=== PATIENT | female | born 1935 ===

== ENCOUNTER 2021-07-28 18:25 | Inpatient (IN) ==
[2021-07-28] MEDS ORDERED: 0.9 % SODIUM CHLORIDE 500 ML IV ONE ×2 (18:35→23:13)
[2021-07-28] MEDS ORDERED: fentaNYL 100 MCG/2 ML VIAL IV ONE (18:36)
[2021-07-28 19:20] LABS: Basophils # (Auto) 0.05 K/mcL (0.00-0.30); Basophils % (Auto) 0.5 % (0.0-2.0); Eosinophils # (Auto) 0.16 K/mcL (0.00-0.70); Eosinophils % (Auto) 1.6 % (0.0-7.0); Hematocrit 37.4 % (34.1-44.9); Hemoglobin 12.7 g/dL (11.2-15.7); Lymphocytes # (Auto) 1.81 K/mcL (1.50-4.80); Mean Platelet Volume 10.9 fL (7.4-10.4); Monocytes # (Auto) 1.21 K/mcL (0.10-0.90); Neutrophils % (Auto) 67.9 % (38.0-78.0); Platelet Count 252 K/mcL (140-440); RBC 4.35 M/mcL (3.59-5.38); Red Cell Distribution Width 12.8 % (11.5-14.5); WBC 10.1 K/mcL (4.5-11.0)
[2021-07-28 19:40] LABS: Blood Urea Nitrogen 16 mg/dL (8-23); Calcium 8.2 mg/dL (8.6-10.4); Carbon Dioxide 27 mmol/L (22-30); Chloride 91 mmol/L (96-108); Glomerular Filtration Rate 66; Glucose 141 mg/dL (70-105)
[2021-07-28] MEDS ORDERED: HYDROmorphone 0.5 MG/0.5 ML SYRINGE ONE (20:32)
[2021-07-28] MEDS ORDERED: ONDANSETRON 4 MG/2 ML VIAL ONE (20:32)
[2021-07-28] MEDS ORDERED: HYDROmorphone 0.5 MG/0.5 ML SYRINGE IV ONE (20:44)
[2021-07-28] MEDS ORDERED: HYDROmorphone 1 MG/ML SYRINGE IV ONE (20:44)
[2021-07-28] MEDS ORDERED: ONDANSETRON 4 MG/2 ML VIAL IV ONE (20:44)
--- NOTE | 2021-07-28 20:51 | Internal Med History&Physical ---
HPI History of Present Illness Patient information: Note initiated : 07/28/21 at 8:47 pm Service Date, if different from initiated Date: [] Patient: Sunshine Palacios a 85 y/o F admitted on for fall right hip pain. Chief Complaint: [] History of present illness: Ms. Palacios is a 85 year old F Who was walking in her bedroom she tripped and fell. Immediate pain to the right hip. In the ED she has had nausea and vomiting but otherwise no complaints. No chest pain shortness of breath coughing. No headaches. Awaiting callback from orthopedic surgeon. In the ED patient hypertensive sodium mildly low but is on hydrochlorothiazide. Does have history of COPD and is on 3 L of oxygen at baseline. Does have history of pulmonary fibrosis Review of Systems: Pertinent positives as above. Denies headache/fever/chills/chest or abdominal pain/cough/dyspnea/diarrhea. Remaining 10 point review review of system reviewed negative PFSH PFSH All Active Problems (Updated 07/28/21 @ 20:08 by Ki Oden DO) Closed hip fracture (Acute) MEDS/ALLERGIES Home Medications and Allergies Home Medications Medication Instructions Recorded Confirmed Type L.acidop,casei,lactis,rham-B.lact,ajit 1 cap PO BID 07/28/21 07/28/21 History 625 mg (10 billion cell) capsule (Advanced Probiotic) albuterol sulfate 2.5 mg INHALATION Q2H PRN 07/28/21 07/28/21 History hydrochlorothiazide 25 mg tablet 25 mg PO QAM 07/28/21 07/28/21 History loperamide 2 mg capsule (Imodium 2 mg PO Q4H PRN 07/28/21 07/28/21 History A-D) losartan 100 mg tablet 100 mg PO QDAY 07/28/21 07/28/21 History lovastatin 40 mg tablet 40 mg PO QPM 07/28/21 07/28/21 History metoprolol succinate 100 mg 100 mg PO QDAY 07/28/21 07/28/21 History tablet,extended release 24 hr nitroglycerin 0.4 mg sublingual 0.4 mg SUBLINGUAL Q5M PRN 07/28/21 07/28/21 History tablet omeprazole 20 mg capsule,delayed 20 mg PO QDAY 07/28/21 07/28/21 History release ondansetron 4 mg disintegrating 4 mg TRANSLINGUAL Q6H PRN 07/28/21 07/28/21 History tablet oxybutynin chloride 5 mg 5 mg PO QDAY 07/28/21 07/28/21 History tablet,extended release 24 hr potassium chloride 10 mEq 10 meq PO TID 07/28/21 07/28/21 History capsule,extended release risperidone 0.25 mg tablet 0.25 mg PO QHS 07/28/21 07/28/21 History vit A 300 mcg-C 200 mg-E 27 1 tab PO QDAY 07/28/21 07/28/21 History mg-lutein 2 mg and minerals tablet (Ocuvite with Lutein) Allergies Allergy/AdvReac Type Severity Reaction Status Date / Time ibuprofen Allergy Unknown Unknown Verified 07/28/21 18:29 EXAM Constitutional Vitals: Pulse Resp BP Pulse Ox 57 L 16 200/96 96 07/28/21 20:44 07/28/21 18:30 07/28/21 20:44 07/28/21 20:44 Exam: General: Alert, Awake, No acute Distress, obese Eyes/N/T: EOMI, PERRL, Head/Neck: neck supple, normocephalic atraumatic CV: RRR, No murmurs, normal s1/s2 Pulm: Clear b/l, no wheezing/rhonchi/rales Abd: soft, nontender, +BS x4 Ext: no clubbing/cyanosis, mild b/l LE edema Neuro: Alert, no focal deficits, moves all extremities, CN 2-12 grossly intact, symmetrical strength b/l upper/lower, sensations intact b/l upper/lower Skin: warm/dry DATA Data Completed and Pending Labs: Labs from last 24 hours 07/28/21 07/28/21 18:53 18:53 WBC 10.1 RBC 4.35 Hgb 12.7 Hct 37.4 MCV 86.0 MCH 29.2 MCHC 34.0 RDW 12.8 Plt Count 252 MPV 10.9 H Neut % (Auto) 67.9 Lymph % (Auto) 18.0 [place] % (Auto) 12.0 Eos % (Auto) 1.6 Baso % (Auto) 0.5 Lymph # (Auto) 1.81 [place] # (Auto) 1.21 H Eos # (Auto) 0.16 Baso # (Auto) 0.05 Absolute Neutrophils 6.82 Sodium 127 L Potassium 3.4 Chloride 91 L Carbon Dioxide 27 Anion Gap 9.0 BUN 16 Creatinine 0.8 GFR Calculation 66 Glucose 141 H Calcium 8.2 L A/P Narrative A/P Narrative: A: *Right hip fracture: *Hypertension: Elevated on admit *Hyponatremia: *COPD(3 L O2)/pulmonary fibrosis chronic hypoxic resp failure: *CKD III: *h/o CVA: On statin but do not see aspirin *HTN/HLD: *Obesity: BMI 33 *GERD: P: -Dr jones for ortho -NS IVF -home O2 and IH's -d/c home HCTZ for hyponatremia -Start ASA, continue statin -Continue home ARB/BB - -PT/OT -ppx: SCDs and postop per Ortho /home PPI DNR Time Spent With Patient Time: Total time spent is greater than 50% in coordination of care (as documented) at patient's floor/unit and/or counseling patient:
--- NOTE | 2021-07-28 21:44 | Emergency Department Note ---
Lower Extremity Injury HPI General Chief Complaint: Extremity Injury, Lower Stated Complaint: fall right hip pain Time Seen by Provider: 07/28/21 18:35 Source: EMS Mode of arrival: EMS Limitations: altered mental status History of Present Illness HPI Narrative: Narrative: 85-year-old female history of heart failure, angina, hypertension presents to ED with acute right hip pain. She got up to use the bathroom and stumbled over a blanket or towel that was on the floor fell injuring her right hip. No head injury no LOC. Has focal pain to her right hip and unable to ambulate due to it. Severe pain with any range of motion. No head pain neck pain thoracic pain abdominal pain or pain or injury in her other extremities no distal numbness tingling no blood thinners. Related Data Home Medications Medication Instructions Recorded Confirmed L.acidop,casei,lactis,rham-B.lact,ajit 1 cap PO BID 07/28/21 07/28/21 625 mg (10 billion cell) capsule (Advanced Probiotic) albuterol sulfate 2.5 mg INHALATION Q2H PRN 07/28/21 07/28/21 hydrochlorothiazide 25 mg tablet 25 mg PO QAM 07/28/21 07/28/21 loperamide 2 mg capsule (Imodium 2 mg PO Q4H PRN 07/28/21 07/28/21 A-D) losartan 100 mg tablet 100 mg PO QDAY 07/28/21 07/28/21 lovastatin 40 mg tablet 40 mg PO QPM 07/28/21 07/28/21 metoprolol succinate 100 mg 100 mg PO QDAY 07/28/21 07/28/21 tablet,extended release 24 hr nitroglycerin 0.4 mg sublingual 0.4 mg SUBLINGUAL Q5M PRN 07/28/21 07/28/21 tablet omeprazole 20 mg capsule,delayed 20 mg PO QDAY 07/28/21 07/28/21 release ondansetron 4 mg disintegrating 4 mg TRANSLINGUAL Q6H PRN 07/28/21 07/28/21 tablet oxybutynin chloride 5 mg 5 mg PO QDAY 07/28/21 07/28/21 tablet,extended release 24 hr potassium chloride 10 mEq 10 meq PO TID 07/28/21 07/28/21 capsule,extended release risperidone 0.25 mg tablet 0.25 mg PO QHS 07/28/21 07/28/21 vit A 300 mcg-C 200 mg-E 27 1 tab PO QDAY 07/28/21 07/28/21 mg-lutein 2 mg and minerals tablet (Ocuvite with Lutein) Allergies Allergy/AdvReac Type Severity Reaction Status Date / Time ibuprofen Allergy Unknown Unknown Verified 07/28/21 18:29 Review of Systems ROS ROS Narrative: Narrative: At least 10 systems reviewed and otherwise acutely negative except as in the HPI PFSH Narrative Patient History Narrative: Narrative: Medical/Surgical/Family History All Active Problems Closed hip fracture (Acute) Social History Smoking Status: Former smoker Exam Narrative Narrative: Narrative: Constitutional: normally developed, no acute distress . Head: Normocephalic, atraumatic, Eyes: No Icterus, PERRLA ENT: Moist mucus membranes, Neck: Supple, no midline tenderness Cardiac: Normal heart sounds, palpable dorsalis pedis pulses, Pulmonary: Normal respiratory effort. Breath sounds clear, no wheeze, rhonchi, rales, Gastrointestinal: Abdomen soft, non-distended, non-tender, pelvis stable Musculoskeletal: No gross deformities, well perfused. Upper extremities unremarkable full range of motion nontender left lower extremity unremarkable full range of motion nontender, right lower extremity severe pain with any logroll of her right hip it is shortened externally rotated but distally is neurovascularly intact Skin: warm, dry Neuro: Alert and orientedx2-3. General Limitations: altered mental status Course Vital Signs Vital signs: Vital Signs Pulse Rate 62 07/28/21 18:30 Respiratory Rate 16 07/28/21 18:30 Blood Pressure 225/86 07/28/21 18:30 Pulse Oximetry (%) 96 07/28/21 18:30 Temperature 36.3 C 07/28/21 21:23 Pulse Rate 64 07/28/21 21:16 Respiratory Rate 16 07/28/21 18:30 Blood Pressure 183/96 07/28/21 21:16 Pulse Oximetry (%) 99 07/28/21 21:16 [facility] Narrative Medical decision making narrative: Narrative: Patient with acute right hip pain suspicious for fracture after mechanical fall. She has no other complaints or other signs of trauma. X-ray per my interpretation does show acute right hip fracture appears intertrochanteric. Chest x-ray per my interpretation may show some cardiomegaly and perhaps vascular congestion but no traumatic injury that is apparent. Basic labs obtained has some mild hyponatremia. Is made n.p.o. is given analgesia and pain is controlled Consulted with Dr. Saleh, plan for operative fix around tomorrow at [address] yu who will admit the patient medically Lab Data Result diagrams: 07/28/21 18:53 07/28/21 18:53 Labs: Lab Results 07/28/21 07/28/21 Range/Units 18:53 18:53 WBC 10.1 (4.5-11.0) K/mcL RBC 4.35 (3.59-5.38) M/mcL Hgb 12.7 (11.2-15.7) g/dL Hct 37.4 (34.1-44.9) % MCV 86.0 (80.0-100.0) fL MCH 29.2 (26.0-34.0) pg MCHC 34.0 (31.0-36.0) g/dL RDW 12.8 (11.5-14.5) % Plt Count 252 (140-440) K/mcL MPV 10.9 H (7.4-10.4) fL Neut % (Auto) 67.9 (38.0-78.0) % Lymph % (Auto) 18.0 (15.5-49.0) % [place] % (Auto) 12.0 (1.0-12.0) % Eos % (Auto) 1.6 (0.0-7.0) % Baso % (Auto) 0.5 (0.0-2.0) % Lymph # (Auto) 1.81 (1.50-4.80) K/mcL [place] # (Auto) 1.21 H (0.10-0.90) K/mcL Eos # (Auto) 0.16 (0.00-0.70) K/mcL Baso # (Auto) 0.05 (0.00-0.30) K/mcL Absolute Neutrophils 6.82 (1.80-8.00) K/mcL Sodium 127 L (133-145) mmol/L Potassium 3.4 (3.3-5.1) mmol/L Chloride 91 L (96-108) mmol/L Carbon Dioxide 27 (22-30) mmol/L Anion Gap 9.0 (8.0-16.0) BUN 16 (8-23) mg/dL Creatinine 0.8 (0.6-1.1) mg/dL GFR Calculation 66 Glucose 141 H (70-105) mg/dL Calcium 8.2 L (8.6-10.4) mg/dL ED POC Tests ED POC Tests: PIERO - SARS Antigen Negative Discharge Plan Patient/Caregiver Discharge Instructions Pt seen by NUCLEAR PHARMACIST/PA only: No Clinical Impression: Closed hip fracture Patient Disposition: Xfer As Inpt ([facility]) Condition: Fair Follow up with: Binta Malloy MD [Primary Care Provider] - Prescriptions: No Action potassium chloride 10 mEq Capsule, Extended Release 10 meq PO TID 0RF albuterol sulfate 2.5 mg /3 mL (0.083 %) Solution For Nebulization 2.5 mg INHALATION Q2H PRN (Reason: Cough) 0RF loperamide [Imodium A-D] 2 mg Capsule 2 mg PO Q4H PRN (Reason: Diarrhea) 0RF Rx Instructions: administer after each loose stool until symptoms controlled; do not exceed 8 mg per 24 hrs lovastatin 40 mg Tablet 40 mg PO QPM 0RF metoprolol succinate 100 mg Tablet Extended Release 24 Hr 100 mg PO QDAY 0RF risperidone 0.25 mg Tablet 0.25 mg PO QHS 0RF nitroglycerin 0.4 mg Tablet, Sublingual 0.4 mg SUBLINGUAL Q5M PRN (Reason: Angina) 0RF Rx Instructions: do not exceed 3 doses per episode oxybutynin chloride 5 mg Tablet Extended Release 24 Hr 5 mg PO QDAY 0RF omeprazole 20 mg Capsule,Delayed Release(Dr/Ec) 20 mg PO QDAY 0RF hydrochlorothiazide 25 mg Tablet 25 mg PO QAM 0RF ondansetron [Zofran ODT] 4 mg Tablet,Disintegrating 4 mg translingual Q6H PRN (Reason: Nausea) 0RF losartan 100 mg Tablet 100 mg PO QDAY 0RF Ocuvite with Lutein 300 mcg-200 mg-27 mg-2 mg Tablet 1 tab PO QDAY 0RF Rx Instructions: administer after a meal Advanced Probiotic 625 mg (10 billion cell) Capsule 1 cap PO BID 0RF
[2021-07-28] MEDS ORDERED: MAGNESIUM SULFATE 2 GM/50 ML BAG IV PRN (23:13)
[2021-07-28] MEDS ORDERED: POTASSIUM CHLORIDE 40 MEQ in DEXTROSE 5% IN WATER 500 ML IV PRN (23:13)
[2021-07-28] MEDS ORDERED: ACETAMINOPHEN 325 MG TABLET PO PRN (23:13)
[2021-07-28] MEDS ORDERED: POLYETHYLENE GLYCOL 3350 17 GM PACKET PO PRN (23:13)
[2021-07-28] MEDS ORDERED: hydrALAZINE 20 MG/ML VIAL IV PRN (23:13)
[2021-07-28] MEDS ORDERED: ONDANSETRON 4 MG/2 ML VIAL IV PRN (23:13)
[2021-07-28] MEDS ORDERED: PROCHLORPERAZINE 10 MG/2 ML VIAL IV PRN (23:13)
[2021-07-28] MEDS ORDERED: LOPERAMIDE 2 MG CAPSULE PO PRN (23:13)
[2021-07-28] MEDS ORDERED: IPRATROPIUM/ALBUTEROL 3 ML AMPUL.NEB NEB PRN (23:13)
[2021-07-28] MEDS ORDERED: SENNOSIDES 1 TABLET PO PRN (23:13)
[2021-07-28] MEDS ORDERED: POTASSIUM CHLORIDE 20 MEQ TABLET PO PRN ×2 (23:13)
[2021-07-28] MEDS ORDERED: LOVASTATIN 40 MG PO SCH (23:13)
[2021-07-29] MEDS ORDERED: HYDROcodone/APAP 5/325MG TABLET PO ONE (00:32)
[2021-07-29] MEDS: HYDROcodone/APAP 5/325MG TABLET PO PRN (00:33)
[2021-07-29] MEDS: DOCUSATE SODIUM 100 MG CAPSULE PO SCH ×4 (00:33→23:47)
[2021-07-29] MEDS: risperiDONE 0.25 MG TABLET PO SCH ×3 (00:33→23:52)
[2021-07-29] MEDS: 0.9 % SODIUM CHLORIDE 10 ML SYRINGE IV SCH ×4 (00:34→23:18)
[2021-07-29] MEDS ORDERED: NITROGLYCERIN 0.4 MG TAB.SUBL SL PRN (05:59)
[2021-07-29] MEDS: OMEPRAZOLE 20 MG CAPSULE PO SCH (06:33)
[2021-07-29 07:10] LABS: ALT/SGPT 20 U/L (<40); AST/SGOT 25 U/L (<32); Albumin/Globulin Ratio 1.3 (1.0-2.3); Alkaline Phosphatase 65 U/L (39-117); Bilirubin,Direct < 0.2 mg/dL (0-0.3); Bilirubin,Total 0.6 mg/dL (0.1-1.0); Blood Urea Nitrogen 14 mg/dL (8-23); Carbon Dioxide 25 mmol/L (22-30); Chloride 96 mmol/L (96-108); Globulin 2.3 gm/dL (2.2-3.7); Glomerular Filtration Rate 78; Glucose 147 mg/dL (70-105); Lactate Dehydrogenase 180 U/L (135-225); Phosphorous 3.4 mg/dL (2.5-4.5); Triglycerides 62 mg/dL (<150); Uric Acid 4.4 mg/dL (2.5-8.0)
--- NOTE | 2021-07-29 07:33 | Internal Med Progress Note ---
SUBJECTIVE Subjective Patient information: Note initiated : 07/29/21 at 7:30 am Service Date, if different from initiated Date: [] Patient: Sunshine Palacios a 85 y/o F admitted on 07/28/21 for fall right hip pain. Chief Complaint: [] Interval history: History of present illness: Ms. Palacios is a 85 year old F Who was walking in her bedroom she tripped and fell. Immediate pain to the right hip. In the ED she has had nausea and vomiting but otherwise no complaints. No chest pain shortness of breath coughing. No headaches. Awaiting callback from orthopedic surgeon. In the ED patient hypertensive sodium mildly low but is on hydrochlorothiazide. Does have history of COPD and is on 3 L of oxygen at baseline. Does have history of pulmonary fibrosis 3/4 Patient appears comfortable. Awaiting for surgery. Sodium improved. Review of Systems: denies headache/fever/chills/nausea/vomiting/chest or abdominal pain/cough/dyspnea/diarrhea. Otherwise see above. Constitutional Vitals: Vital Signs Temp Pulse Resp BP Pulse Ox 97.2 F 67 18 138/68 94 07/29/21 04:00 07/29/21 04:00 07/29/21 04:00 07/29/21 04:00 07/29/21 04:31 Period Temp Pulse Resp BP Sys/[place] Pulse Ox Last 24 Hr 97.2 F-98.5 F 52-67 16-20 138-225/56-129 94-100 Intake and Output 07/28/21 07/29/21 07/29/21 21:59 05:59 13:59 Intake Total 500 100 Output Total 300 Balance 500 -200 Weight 83.915 kg 80.513 kg Intake & Output: Intake & Output 07/28/21 07/29/21 07/29/21 21:59 05:59 13:59 Intake Total 500 100 Output Total 300 Balance 500 -200 Weight 83.915 kg 80.513 kg Intake: IV 500 Sodium Chloride 0.9% 500 ml @ 500 Wide Open IV BOLUS ONE Rx#: [id number] Oral 100 Output: Urine Catheter Amount 300 Other: Urine Appearance Clear Urine Color Bright Yellow Exam: General: Alert, Awake, No acute Distress, obese Eyes/N/T: EOMI, Head/Neck: neck supple, CV: RRR, No murmurs, Pulm: Clear b/l, no wheezing/rhonchi/rales Abd: soft, nontender, +BS x4 Ext: no clubbing/cyanosis, trace b/l LE edema Neuro: Alert, no focal deficits, moves all extremities, Skin: warm/dry OBJ DATA Labs CBC & Chem 7: 07/28/21 18:53 07/29/21 05:46 Labs: Abnormal Lab Results 07/29/21 07/28/21 07/28/21 05:46 18:53 18:53 MPV 10.9 H [place] # (Auto) 1.21 H Sodium 131 L 127 L Chloride 91 L Glucose 147 H 141 H Calcium 8.0 L 8.2 L Total Protein 5.3 L Albumin 3.0 L Meds: Medications Acetaminophen (Acetaminophen 325 Mg Tablet) 650 mg PO Q6HP PRN; Protocol PRN Reason: Per Pain Protocol/Fever > 101 Hydrocodone Bitart/Acetaminophen (Hydrocodone/Apap 5/325mg Tablet) 1 tab PO Q4HP PRN PRN Reason: PAIN LEVEL 3-6 Last Admin: 07/29/21 00:33 Dose: 1 tab Documented by: Albuterol/Ipratropium (Ipratropium/Albuterol 3 Ml Ampul.Neb) 3 ml NEB Q4HP PRN PRN Reason: Shortness Of Breath Aspirin (Aspirin 325 Mg Enteric Coated Tablet) 81 mg PO DAILY [facility] Docusate Sodium (Docusate Sodium 100 Mg Capsule) 100 mg PO BID [facility] Last Admin: 07/29/21 00:33 Dose: Not Given Documented by: Hydralazine HCl (Hydralazine 20 Mg/Ml Vial) 0 mg IV Q2HP PRN PRN Reason: Hypertension Potassium Chloride 40 meq/ (Dextrose) 520 mls @ 130 mls/hr IV UD PRN PRN Reason: Potassium < 3 Magnesium Sulfate (Magnesium Sulfate) 2 gm in 50 mls @ 50 mls/hr IV UD PRN PRN Reason: Magnesium </= 1.6 Loperamide HCl (Loperamide 2 Mg Capsule) 2 mg PO Q4HP PRN PRN Reason: Diarrhea Losartan Potassium (Losartan 50 Mg Tablet) 100 mg PO QDAY [facility] Metoprolol Succinate (Metoprolol Succinate 50 Mg Tab.Xl.24h) 100 mg PO QDAY [facility] Morphine Sulfate (Morphine 4 Mg/Ml Vial) 0 mg IV Q3HP PRN PRN Reason: Pain Nitroglycerin (Nitroglycerin 0.4 Mg Tab.Subl) 0.4 mg SL Q5M PRN PRN Reason: Chest Pain Omeprazole (Omeprazole 20 Mg Capsule) 20 mg PO QAMAC [facility] Last Admin: 07/29/21 06:33 Dose: Not Given Documented by: Ondansetron HCl (Ondansetron 4 Mg/2 Ml Vial) 4 mg IV Q4HP PRN PRN Reason: Nausea And Vomiting Oxybutynin Chloride (Oxybutynin Chloride 5 Mg Tab.Xl.24h) 5 mg PO QDAY [facility] Polyethylene Glycol (Polyethylene Glycol 3350 17 Gm Packet) 17 gm PO DAILYP PRN PRN Reason: Constipation Potassium Chloride (Potassium Chloride 20 Meq Tablet) 40 meq PO UD PRN PRN Reason: Potssium is 3-3.5 Potassium Chloride (Potassium Chloride 20 Meq Tablet) 40 meq PO UD PRN PRN Reason: Potassium < 3 Prochlorperazine (Prochlorperazine 10 Mg/2 Ml Vial) 10 mg IV Q6HP PRN PRN Reason: Nausea And Vomiting Risperidone (Risperidone 0.25 Mg Tablet) 0.25 mg PO QHS [facility] Last Admin: 07/29/21 00:33 Dose: Not Given Documented by: Senna (Sennosides 1 Tablet) 2 tab PO DAILYP PRN PRN Reason: Constipation Simvastatin (Simvastatin 20 Mg Tablet) 20 mg PO HS [facility] Sodium Chloride (0.9 % Sodium Chloride 10 Ml Syringe) 10 ml IV Q8 [facility] Last Admin: 07/29/21 04:35 Dose: Not Given Documented by: A/P Narrative A/P Narrative: A: *Right hip fracture: *HTN: Elevated on admit 2/2 pain *Hyponatremia: improved *COPD(3 L O2)/pulmonary fibrosis chronic hypoxic resp failure: *CKD III: *h/o CVA: On statin but do not see aspirin *HTN/HLD: *Obesity: BMI 33 *GERD: P: -Dr jones for ortho -s/p NS IVF -home O2 and IH's -d/c home HCTZ for hyponatremia -Start ASA after surgery, continue statin -Continue home ARB/BB --PT/OT -ppx: SCDs and postop per Ortho /home PPI full code Time Spent With Patient Time: Total time spent is greater than 50% in coordination of care (as documented) at patient's floor/unit and/or counseling patient: QUALITY VTE Deep Vein Thrombosis/Pulmonary Embolism Present on Admission: No
--- NOTE | 2021-07-29 07:42 | XRay Report ---
HISTORY: Preop to repair hip fracture FINDINGS: The heart is mildly enlarged but magnified by portable technique. Subtle diffuse increased lung markings are present bilaterally. Some of this is scatter artifact created by superimposed thick subcutaneous tissues. However, there may be underlying low-grade inflammation or fibrosis. No prior study is available for comparison. There is no consolidating infiltrate and no mass or pleural effusion. Aorta is moderately tortuous. IMPRESSION: Mild cardiomegaly and possible underlying pulmonary disease Interpreted and Authenticated by: Mack Simons 07/29/21
--- NOTE | 2021-07-29 07:44 | XRay Report ---
HISTORY: Fell with right hip injury FINDINGS: There is an acute comminuted intertrochanteric fracture of the right femur. The femoral neck remains normally aligned with the shaft. The hip joint is normal with no fracture or underlying arthritis. The lesser trochanter is fragmented and the fragments are displaced medially. No pelvic fracture is present. The left hip appears normal. IMPRESSION: Intertrochanteric fracture of the proximal right femur Interpreted and Authenticated by: Mack Simons 07/29/21
[2021-07-29] MEDS ORDERED: SCOPOLAMINE 1 PATCH PATCH TOPICAL PRN (07:55)
[2021-07-29] MEDS: morphine 4 MG/ML VIAL IV PRN ×2 (08:37→15:00)
[2021-07-29] MEDS ORDERED: ASPIRIN 325 MG ENTERIC COATED TABLET PO SCH (09:00)
[2021-07-29] MEDS: METOPROLOL SUCCINATE 50 MG TAB.XL.24H PO SCH (09:11)
[2021-07-29] MEDS: ASPIRIN 81 MG TAB.CHEW PO SCH (09:14)
[2021-07-29] MEDS: LOSARTAN 50 MG TABLET PO SCH (09:14)
[2021-07-29] MEDS: OXYBUTYNIN CHLORIDE 5 MG TAB.XL.24H PO SCH (09:14)
[2021-07-29] MEDS ORDERED: ceFAZolin 2 GM in DEXTROSE 5% IN WATER 50 ML IV SCH ×2 (17:30→20:15)
[2021-07-29] MEDS ORDERED: morphine 4 MG/ML VIAL IV PRN (19:54)
[2021-07-29] MEDS ORDERED: TRANEXAMIC ACID 1,000 MG/10 ML VIAL IV ONE (19:54)
[2021-07-29] MEDS ORDERED: NALOXONE HCL 0.4 MG/ML VIAL IV PRN ×2 (19:54→21:09)
[2021-07-29] MEDS ORDERED: BENZOCAINE/MENTHOL 1 LOZENGE PO PRN ×2 (19:54→21:09)
[2021-07-29] MEDS ORDERED: METHOCARBAMOL 1,000 MG/10 ML VIAL IV PRN (19:54)
[2021-07-29] MEDS ORDERED: DEXAMETHASONE 10 MG/ML VIAL ONE (20:10)
[2021-07-29] MEDS ORDERED: KETAMINE 50 MG/ML Syringe (ANEST) IV ONE (20:10)
[2021-07-29] MEDS ORDERED: ONDANSETRON 4 MG/2 ML VIAL ONE (20:10)
[2021-07-29] MEDS ORDERED: MAGNESIUM SULFATE 2 GM/50 ML BAG IV ONE (20:10)
[2021-07-29] MEDS ORDERED: LIDOCAINE HCL/PF 100 MG/5 ML SYRINGE IV ONE (20:10)
[2021-07-29] MEDS ORDERED: PROPOFOL 200 MG/20 ML VIAL IV ONE (20:10)
[2021-07-29] MEDS ORDERED: diphenhydrAMINE 50 MG/ML VIAL IV PRN (21:09)
[2021-07-29] MEDS ORDERED: ONDANSETRON 4 MG/2 ML VIAL IV PRN (21:09)
[2021-07-29] MEDS ORDERED: PROMETHAZINE 25 MG/ML VIAL IV PRN (21:09)
[2021-07-29] MEDS ORDERED: MEPERIDINE 25 MG/ML VIAL IV PRN (21:09)
[2021-07-29] MEDS ORDERED: ACETAMINOPHEN 1,000 MG/100 ML BAG IV ONE (21:09)
[2021-07-29] MEDS ORDERED: LACTATED RINGERS 250 ML IV PRN (21:09)
[2021-07-29] MEDS ORDERED: IPRATROPIUM/ALBUTEROL 3 ML AMPUL.NEB NEB PRN (21:09)
[2021-07-29] MEDS ORDERED: LACTATED RINGERS 1,000 ML IV SCH (21:15)
--- NOTE | 2021-07-29 21:24 | Discharge Plan ---
Discharge Plan Patient/Caregiver Discharge Instructions Activity: other Diet: Regular Diet Activity Restrictions/Additional Instructions: 50% WB Prescriptions: New hydrocodone-acetaminophen 7.5-325 mg tablet 1 tab PO Q6H PRN (Reason: pain) Qty: 60 0RF aspirin [Children's Aspirin] 81 mg tablet,chewable 81 mg PO BID Qty: 60 0RF No Action potassium chloride 10 mEq Capsule, Extended Release 10 meq PO TID 0RF albuterol sulfate 2.5 mg /3 mL (0.083 %) Solution For Nebulization 2.5 mg INHALATION Q2H PRN (Reason: Cough) 0RF loperamide [Imodium A-D] 2 mg Capsule 2 mg PO Q4H PRN (Reason: Diarrhea) 0RF Rx Instructions: administer after each loose stool until symptoms controlled; do not exceed 8 mg per 24 hrs lovastatin 40 mg Tablet 40 mg PO QPM 0RF metoprolol succinate 100 mg Tablet Extended Release 24 Hr 100 mg PO QDAY 0RF risperidone 0.25 mg Tablet 0.25 mg PO QHS 0RF nitroglycerin 0.4 mg Tablet, Sublingual 0.4 mg SUBLINGUAL Q5M PRN (Reason: Angina) 0RF Rx Instructions: do not exceed 3 doses per episode oxybutynin chloride 5 mg Tablet Extended Release 24 Hr 5 mg PO QDAY 0RF omeprazole 20 mg Capsule,Delayed Release(Dr/Ec) 20 mg PO QDAY 0RF hydrochlorothiazide 25 mg Tablet 25 mg PO QAM 0RF ondansetron [Zofran ODT] 4 mg Tablet,Disintegrating 4 mg translingual Q6H PRN (Reason: Nausea) 0RF losartan 100 mg Tablet 100 mg PO QDAY 0RF Ocuvite with Lutein 300 mcg-200 mg-27 mg-2 mg Tablet 1 tab PO QDAY 0RF Rx Instructions: administer after a meal Advanced Probiotic 625 mg (10 billion cell) Capsule 1 cap PO BID 0RF Follow Up Plan Follow up with: Zan Saleh MD [Physician] - Binta Malloy MD [Primary Care Provider] - Patient Disposition: Home, Self-Care Prognosis: Fair Discharge Orders: Discharge Order (Routine); Ordered 08/01/21 Ordered By: Zan Saleh
--- NOTE | 2021-07-29 21:32 | Operative Note ---
Operative Note Operative Note: Pre-operative diagnosis: Right intertrochanteric hip fracture Postoperative diagnosis: Same Procedure: Right hip medium length IM nail Implants: Synthes 12 mm x 2 35mm TFN nail with 105 mm cephalad screw and 34 mm distal locking screw Findings: As above diagnosis, significant displacement lesser trochanter Complications: None Estimated Blood loss: 200 cc Assist: Roc Price DOS: July 29, 2021 Clinical note: The patient continues to suffer from the above mentioned diagnosis. Patient had a fall and was brought to the emergency department and diagnosed with the above fracture. Surgical fixation was advised with the goal of allowing more rapid mobility and decreasing the risks of prolonged bedrest. Patient and her family consented the procedure where understanding the risk. H&P: The patient was met outside the operating room and symptoms were reviewed and a physical exam performed. The patient demonstrated ongoing symptoms and signs as previously discussed. Risk versus benefits of the procedure were again discussed. Patient wished to proceed with the surgery aware and understanding of these risks. The operative site was marked. The patient was brought into the operating room and prepped and draped in the usual fashion supine on traction table. Traction was applied and the hip was imaged with fluoroscopy. This confirmed good reduction of the fracture both in AP and lateral views. We began by making an incision directly superior to the GT. A starting wire was introduced with the help of a starting awl directly on the tip of the GT using fluoroscopy to confirm trajectory. The canal was then opened with an entry reamer. Looking on the AP view it appeared the base of the neck was not anatomically reduced. Therefore incision was made laterally and a hook brought over top of the neck and used to pull this fragment down. This allowed fairly anatomic reduction. There was an additional LT fracture which was significantly displaced but this was left alone as reduction would have required significant more exposure and time and there is felt this would heal with time. A short IM nail of size scribed above was then introduced. This was advanced with a mallet until the trajectory of the cephalad screw is in line with the center of the femoral head. A guidewire was introduced to the center of the femoral head within 25 mm combined on both AP and lateral views of the apex. An incision was made on the lateral femur, and the lateral femoral cortex was opened through the trocar with a start drill, then the femoral neck was drilled in the usual fashion. A Cephalad screw was then inserted through the trocar into the center of the femoral head. Again using the guide a distal locking screw was inserted in the usual fashion securing the distal portion of the nail. Final fluoroscopy views were performed confirming the hip remained well reduced in the nail and locking screws were in good position. The wounds were then irrigated. They were closed with a heavy Vicryl suture for the deep layers followed by Monocryl and megan for the skin. A bulky dressing was applied. Patient was brought to PACU in good condition. They can be 50% weightbearing on that leg should follow-up with myself or the PA in 2 weeks time at [facility] for wound check and staple removal.
[2021-07-29] MEDS ORDERED: TRANEXAMIC ACID 1,000 MG/10 ML VIAL ONE (21:37)
[2021-07-29] MEDS: fentaNYL 100 MCG/2 ML VIAL IV PRN ×2 (21:43→21:48)
[2021-07-29] MEDS: LACTATED RINGERS 1,000 ML IV SCH (23:32)
[2021-07-29] MEDS: SIMVASTATIN 20 MG TABLET PO SCH ×2 (23:32→23:52)
[2021-07-29] MEDS: ENOXAPARIN 30 MG/0.3 ML SYRINGE SQ SCH ×2 (23:33→23:53)
[2021-07-29] MEDS: SODIUM CHLORIDE 1 GM TABLET PO SCH ×2 (23:33→23:48)
[2021-07-30] MEDS: HYDROcodone/APAP 5/325MG TABLET PO PRN ×4 (05:36→23:44)
[2021-07-30] MEDS: 0.9 % SODIUM CHLORIDE 10 ML SYRINGE IV SCH ×3 (05:41→20:05)
[2021-07-30] MEDS: ceFAZolin 1 GM VIAL IV SCH ×3 (05:41→20:04)
--- NOTE | 2021-07-30 06:13 | XRay Report ---
HISTORY: FINDINGS: IMPRESSION: 1.2 minutes of fluoroscopy time was used. Interpreted and Authenticated by: Mack Simons 07/30/21
[2021-07-30 06:55] LABS: Hematocrit 32.7 % (34.1-44.9); Hemoglobin 10.6 g/dL (11.2-15.7)
[2021-07-30 07:19] LABS: Blood Urea Nitrogen 14 mg/dL (8-23); Calcium 8.2 mg/dL (8.6-10.4); Carbon Dioxide 26 mmol/L (22-30); Chloride 94 mmol/L (96-108); Glomerular Filtration Rate 78; Glucose 159 mg/dL (70-105)
[2021-07-30] MEDS: OMEPRAZOLE 20 MG CAPSULE PO SCH (07:51)
--- NOTE | 2021-07-30 08:20 | Internal Med Progress Note ---
SUBJECTIVE Subjective Patient information: Note initiated : 07/30/21 at 8:17 am Service Date, if different from initiated Date: [] Patient: Sunshine Palacios a 85 y/o F admitted on 07/28/21 for fall right hip pain. Chief Complaint: [] Interval history: History of present illness: Ms. Palacios is a 85 year old F Who was walking in her bedroom she tripped and fell. Immediate pain to the right hip. In the ED she has had nausea and vomiting but otherwise no complaints. No chest pain shortness of breath coughing. No headaches. Awaiting callback from orthopedic surgeon. In the ED patient hypertensive sodium mildly low but is on hydrochlorothiazide. Does have history of COPD and is on 3 L of oxygen at baseline. Does have history of pulmonary fibrosis 07/29 Patient appears comfortable. Awaiting for surgery. Sodium improved. 07/30 No overnight event or new complaints. Patient cantankerous at times. Review of Systems: denies headache/fever/chills/nausea/vomiting/chest or abdominal pain/cough/dyspnea/diarrhea. Otherwise see above. Constitutional Vitals: Vital Signs Temp Pulse Resp BP Pulse Ox 96.9 F L 56 L 18 124/71 93 07/30/21 07:37 07/30/21 07:37 07/30/21 07:37 07/30/21 07:37 07/30/21 07:37 Period Temp Pulse Resp BP Sys/Guallpa Pulse Ox Last 24 Hr 96.3 F-98.5 F 56-70 8-29 108-174/56-99 67-97 Intake and Output 07/29/21 07/30/21 07/30/21 21:59 05:59 13:59 Intake Total 750 150 Output Total 150 200 Balance 600 -50 Weight 80.558 kg Intake & Output: Intake & Output 07/29/21 07/30/21 07/30/21 21:59 05:59 13:59 Intake Total 750 150 Output Total 150 200 Balance 600 -50 Weight 80.558 kg Intake: IV 50 100 Ancef 2 gm In Dextrose 5% in 50 Water 50 ml @ 100 mls/hr IV PREOP [facility] Rx#:[id number] Oral 50 IV - Manual Only 700 Output: Urine Catheter Amount 150 200 Other: Urine Appearance Clear Clear Urine Color Dark Yellow Dark Yellow Urine Odor Normal Normal Exam: General: Alert, Awake, No acute Distress, obese Eyes/N/T: EOMI, Head/Neck: neck supple, CV: RRR, No murmurs, Pulm: Clear b/l, no wheezing/rhonchi/rales Abd: soft, nontender, +BS x4 Ext: no clubbing/cyanosis, trace b/l LE edema Neuro: Alert, no focal deficits, moves all extremities, Skin: warm/dry OBJ DATA Labs CBC & Chem 7: 07/30/21 05:52 07/30/21 05:52 Labs: Abnormal Lab Results 07/30/21 07/30/21 07/29/21 05:52 05:52 05:46 Hgb 10.6 L Hct 32.7 L MPV [place] # (Auto) Sodium 129 L 131 L Chloride 94 L Glucose 159 H 147 H Calcium 8.2 L 8.0 L Total Protein 5.3 L Albumin 3.0 L 07/28/21 07/28/21 18:53 18:53 Hgb Hct MPV 10.9 H [place] # (Auto) 1.21 H Sodium 127 L Chloride 91 L Glucose 141 H Calcium 8.2 L Total Protein Albumin Meds: Medications Acetaminophen (Acetaminophen 325 Mg Tablet) 650 mg PO Q6HP PRN; Protocol PRN Reason: Per Pain Protocol/Fever > 101 Hydrocodone Bitart/Acetaminophen (Hydrocodone/Apap 5/325mg Tablet) 1 tab PO Q4HP PRN PRN Reason: PAIN LEVEL 3-6 Last Admin: 07/30/21 05:36 Dose: 1 tab Documented by: Albuterol/Ipratropium (Ipratropium/Albuterol 3 Ml Ampul.Neb) 3 ml NEB Q4HP PRN PRN Reason: Shortness Of Breath Aspirin (Aspirin 81 Mg Tab.Chew) 81 mg PO DAILY [facility] Last Admin: 07/29/21 09:14 Dose: Not Given Documented by: Cefazolin Sodium (Cefazolin 1 Gm Vial) 2 gm IV Q8H [facility] Stop: 07/30/21 20:01 Last Admin: 07/30/21 05:41 Dose: 2 gm Documented by: Docusate Sodium (Docusate Sodium 100 Mg Capsule) 100 mg PO BID [facility] Last Admin: 07/29/21 23:47 Dose: Not Given Documented by: Enoxaparin Sodium (Enoxaparin 30 Mg/0.3 Ml Syringe) 30 mg SQ BID [facility] Last Admin: 07/29/21 23:53 Dose: 30 mg Documented by: Hydralazine HCl (Hydralazine 20 Mg/Ml Vial) 0 mg IV Q2HP PRN PRN Reason: Hypertension Potassium Chloride 40 meq/ (Dextrose) 520 mls @ 130 mls/hr IV UD PRN PRN Reason: Potassium < 3 Magnesium Sulfate (Magnesium Sulfate) 2 gm in 50 mls @ 50 mls/hr IV UD PRN PRN Reason: Magnesium </= 1.6 Lactated Ringer's (Lactated Ringers) 1,000 mls @ 75 mls/hr IV .[id number] [facility] Last Admin: 07/29/21 23:32 Dose: 75 mls/hr Documented by: Loperamide HCl (Loperamide 2 Mg Capsule) 2 mg PO Q4HP PRN PRN Reason: Diarrhea Losartan Potassium (Losartan 50 Mg Tablet) 100 mg PO QDAY [facility] Last Admin: 07/29/21 09:14 Dose: 100 mg Documented by: Methocarbamol (Methocarbamol 1,000 Mg/10 Ml Vial) 750 mg IV Q6HP PRN PRN Reason: Muscle Spasm Metoprolol Succinate (Metoprolol Succinate 50 Mg Tab.Xl.24h) 100 mg PO QDAY [facility] Last Admin: 07/29/21 09:11 Dose: 100 mg Documented by: Morphine Sulfate (Morphine 4 Mg/Ml Vial) 0 mg IV Q3HP PRN PRN Reason: Pain Last Admin: 07/29/21 15:00 Dose: 2 mg Documented by: Morphine Sulfate (Morphine 4 Mg/Ml Vial) 0 mg IV Q1HP PRN; Protocol PRN Reason: Per Pain Protocol Naloxone HCl (Naloxone Hcl 0.4 Mg/Ml Vial) 0.1 mg IV Q2MIN PRN PRN Reason: Opiate Reversal Nitroglycerin (Nitroglycerin 0.4 Mg Tab.Subl) 0.4 mg SL Q5M PRN PRN Reason: Chest Pain Omeprazole (Omeprazole 20 Mg Capsule) 20 mg PO QAMAC [facility] Last Admin: 07/30/21 07:51 Dose: 20 mg Documented by: Ondansetron HCl (Ondansetron 4 Mg/2 Ml Vial) 4 mg IV Q4HP PRN PRN Reason: Nausea And Vomiting Oxybutynin Chloride (Oxybutynin Chloride 5 Mg Tab.Xl.24h) 5 mg PO QDAY [facility] Last Admin: 07/29/21 09:14 Dose: 5 mg Documented by: Polyethylene Glycol (Polyethylene Glycol 3350 17 Gm Packet) 17 gm PO DAILYP PRN PRN Reason: Constipation Potassium Chloride (Potassium Chloride 20 Meq Tablet) 40 meq PO UD PRN PRN Reason: Potssium is 3-3.5 Potassium Chloride (Potassium Chloride 20 Meq Tablet) 40 meq PO UD PRN PRN Reason: Potassium < 3 Prochlorperazine (Prochlorperazine 10 Mg/2 Ml Vial) 10 mg IV Q6HP PRN PRN Reason: Nausea And Vomiting Risperidone (Risperidone 0.25 Mg Tablet) 0.25 mg PO QHS [facility] Last Admin: 07/29/21 23:52 Dose: Not Given Documented by: Senna (Sennosides 1 Tablet) 2 tab PO DAILYP PRN PRN Reason: Constipation Simvastatin (Simvastatin 20 Mg Tablet) 20 mg PO HS [facility] Last Admin: 07/29/21 23:52 Dose: Not Given Documented by: Sodium Chloride (0.9 % Sodium Chloride 10 Ml Syringe) 10 ml IV Q8 [facility] Last Admin: 07/30/21 05:41 Dose: Not Given Documented by: Sodium Chloride (Sodium Chloride 1 Gm Tablet) 2 gm PO BID [facility] Stop: 07/30/21 09:01 Last Admin: 07/29/21 23:48 Dose: Not Given Documented by: Throat Lozenges (Benzocaine/Menthol 1 Lozenge) 1 lozenge PO PRN PRN PRN Reason: Sore Throat A/P Narrative A/P Narrative: A: *Right hip fracture: s/p ORIF (07/29) *HTN: *Hyponatremia: improved *COPD(3 L O2)/pulmonary fibrosis chronic hypoxic resp failure: *CKD III: *h/o CVA: On statin but do not see aspirin *HTN/HLD: *Obesity: BMI 33 *GERD: P: -Dr jones for ortho -home O2 and IH's -d/c home HCTZ for hyponatremia -Start ASA, continue statin -Continue home ARB/BB -PT/OT -ppx: lovenox postop per Ortho /home PPI full code Time Spent With Patient Time: Total time spent is greater than 50% in coordination of care (as documented) at patient's floor/unit and/or counseling patient: QUALITY VTE Deep Vein Thrombosis/Pulmonary Embolism Present on Admission: No
--- NOTE | 2021-07-30 08:23 | XRay Report ---
HISTORY: Postop repair of right hip fracture FINDINGS: There is an intertrochanteric fracture of the right proximal femur. A long femoral nathan has been inserted through the top of the greater trochanter. There is a crossing IM nail placed through the nathan into the head. There is good alignment of the femoral neck with the shaft. The hip joint space is normal in width and alignment. The comminuted fracture of the lesser trochanter remains displaced medially. The alignment of the lesser trochanter is unchanged from the preoperative x-ray. IMPRESSION: Good alignment following open reduction internal fixation of the intertrochanteric fracture Interpreted and Authenticated by: Mack Simons 07/30/21
[2021-07-30] MEDS: LACTATED RINGERS 1,000 ML IV SCH ×2 (09:19→20:42)
[2021-07-30] MEDS: ASPIRIN 81 MG TAB.CHEW PO SCH ×2 (09:24→09:26)
[2021-07-30] MEDS: SODIUM CHLORIDE 1 GM TABLET PO SCH ×3 (09:25→20:05)
[2021-07-30] MEDS: OXYBUTYNIN CHLORIDE 5 MG TAB.XL.24H PO SCH (09:25)
[2021-07-30] MEDS: DOCUSATE SODIUM 100 MG CAPSULE PO SCH ×2 (09:25→20:06)
[2021-07-30] MEDS: METOPROLOL SUCCINATE 50 MG TAB.XL.24H PO SCH (09:25)
[2021-07-30] MEDS: ENOXAPARIN 30 MG/0.3 ML SYRINGE SQ SCH ×2 (09:25→20:04)
[2021-07-30] MEDS: LOSARTAN 50 MG TABLET PO SCH (09:25)
[2021-07-30] MEDS ORDERED: FLU VACC QS2021-22(6MOS UP)/PF 60 MCG/0.5 ML SYRINGE IM ONE (10:00)
--- NOTE | 2021-07-30 11:38 | General Surgery Progress Note ---
Surgery - Auxiliary Note Subjective Patient Information: Note initiated : 07/30/21 at 11:36 am Service Date, if different from initiated Date: [] Patient: Sunshine Palacios 85 y/o F admitted on 07/28/21 for fall right hip pain. Chief Complaint: No c/o. Pt very confused/forgetful. bandages c/d/i nvi-distal A: 1 day s/p R hip IM nail fot intertroch fx-stable P: cont PT cont medical management per hospitalist.
[2021-07-30] MEDS: SIMVASTATIN 20 MG TABLET PO SCH (20:05)
[2021-07-30] MEDS: risperiDONE 0.25 MG TABLET PO SCH (20:06)
[2021-07-30] MEDS: morphine 4 MG/ML VIAL IV PRN (22:11)
[2021-07-31] MEDS: HYDROcodone/APAP 5/325MG TABLET PO PRN (04:21)
[2021-07-31] MEDS: 0.9 % SODIUM CHLORIDE 10 ML SYRINGE IV SCH ×3 (04:22→20:06)
[2021-07-31 06:42] LABS: Blood Urea Nitrogen 20 mg/dL (8-23); Carbon Dioxide 28 mmol/L (22-30); Chloride 96 mmol/L (96-108); Glomerular Filtration Rate 58; Glucose 126 mg/dL (70-105)
--- NOTE | 2021-07-31 07:48 | Internal Med Progress Note ---
SUBJECTIVE Subjective Patient information: Note initiated : 07/31/21 at 7:47 am Service Date, if different from initiated Date: [] Patient: Sunshine Palacios a 85 y/o F admitted on 07/28/21 for fall right hip pain. Chief Complaint: [] Interval history: History of present illness: Ms. Palacios is a 85 year old F Who was walking in her bedroom she tripped and fell. Immediate pain to the right hip. In the ED she has had nausea and vomiting but otherwise no complaints. No chest pain shortness of breath coughing. No headaches. Awaiting callback from orthopedic surgeon. In the ED patient hypertensive sodium mildly low but is on hydrochlorothiazide. Does have history of COPD and is on 3 L of oxygen at baseline. Does have history of pulmonary fibrosis 3/ Patient appears comfortable. Awaiting for surgery. Sodium improved. 07/30 No overnight event or new complaints. Patient cantankerous at times. 07/31 No change. No overnight event or new complaints. Awaiting placement. Review of Systems: denies headache/fever/chills/nausea/vomiting/chest or abdominal pain/cough/dyspnea/diarrhea. Otherwise see above. Constitutional Vitals: Vital Signs Temp Pulse Resp BP Pulse Ox 98.3 F 68 18 111/63 96 07/31/21 07:37 07/31/21 07:37 07/31/21 07:37 07/31/21 07:37 07/31/21 07:37 Period Temp Pulse Resp BP Sys/Guallpa Pulse Ox Last 24 Hr 97 F-98.8 F 56-68 16-20 105-126/53-76 90-96 Intake and Output 07/30/21 07/31/21 07/31/21 21:59 05:59 13:59 Intake Total 300 Output Total 1000 Balance -700 Weight 82.917 kg Intake & Output: Intake & Output 07/30/21 07/31/21 07/31/21 21:59 05:59 13:59 Intake Total 300 Output Total 1000 Balance -700 Weight 82.917 kg Intake: Oral 300 Output: Urine Catheter Amount 1000 Other: Urine Appearance Clear Clear Uretheral (Bruno) Clear Urine Color Dark Yellow Dark Yellow Uretheral (Bruno) Dark Yellow # Voids 1 # of times incontinent of 1 Bowels Exam: General: Alert, Awake, No acute Distress, obese Eyes/N/T: EOMI, Head/Neck: neck supple, CV: RRR, No murmurs, Pulm: Clear b/l, no wheezing/rhonchi/rales Abd: soft, nontender, +BS x4 Ext: no clubbing/cyanosis, trace b/l LE edema Neuro: Alert, no focal deficits, moves all extremities, Skin: warm/dry OBJ DATA Labs CBC & Chem 7: 07/30/21 05:52 07/31/21 05:27 Labs: Abnormal Lab Results 07/31/21 07/30/21 07/30/21 05:27 05:52 05:52 Hgb 10.6 L Hct 32.7 L MPV [place] # (Auto) Sodium 132 L 129 L Chloride 94 L Glucose 126 H 159 H Calcium 8.0 L 8.2 L Total Protein Albumin 07/29/21 07/28/21 07/28/21 05:46 18:53 18:53 Hgb Hct MPV 10.9 H [place] # (Auto) 1.21 H Sodium 131 L 127 L Chloride 91 L Glucose 147 H 141 H Calcium 8.0 L 8.2 L Total Protein 5.3 L Albumin 3.0 L Meds: Medications Acetaminophen (Acetaminophen 325 Mg Tablet) 650 mg PO Q6HP PRN; Protocol PRN Reason: Per Pain Protocol/Fever > 101 Hydrocodone Bitart/Acetaminophen (Hydrocodone/Apap 5/325mg Tablet) 1 tab PO Q4HP PRN PRN Reason: PAIN LEVEL 3-6 Last Admin: 07/31/21 04:21 Dose: 1 tab Documented by: Albuterol/Ipratropium (Ipratropium/Albuterol 3 Ml Ampul.Neb) 3 ml NEB Q4HP PRN PRN Reason: Shortness Of Breath Aspirin (Aspirin 81 Mg Tab.Chew) 81 mg PO DAILY [facility] Last Admin: 07/30/21 09:24 Dose: 81 mg Documented by: Aspirin (Aspirin 81 Mg Tab.Chew) 81 mg PO DAILY [facility] Last Admin: 07/30/21 09:26 Dose: Not Given Documented by: Docusate Sodium (Docusate Sodium 100 Mg Capsule) 100 mg PO BID [facility] Last Admin: 07/30/21 20:06 Dose: 100 mg Documented by: Enoxaparin Sodium (Enoxaparin 30 Mg/0.3 Ml Syringe) 30 mg SQ BID [facility] Last Admin: 07/30/21 20:04 Dose: 30 mg Documented by: Hydralazine HCl (Hydralazine 20 Mg/Ml Vial) 0 mg IV Q2HP PRN PRN Reason: Hypertension Potassium Chloride 40 meq/ (Dextrose) 520 mls @ 130 mls/hr IV UD PRN PRN Reason: Potassium < 3 Magnesium Sulfate (Magnesium Sulfate) 2 gm in 50 mls @ 50 mls/hr IV UD PRN PRN Reason: Magnesium </= 1.6 Lactated Ringer's (Lactated Ringers) 1,000 mls @ 75 mls/hr IV .[id number] [facility] Last Admin: 07/30/21 20:42 Dose: Not Given Documented by: Loperamide HCl (Loperamide 2 Mg Capsule) 2 mg PO Q4HP PRN PRN Reason: Diarrhea Losartan Potassium (Losartan 50 Mg Tablet) 100 mg PO QDAY [facility] Last Admin: 07/30/21 09:25 Dose: 100 mg Documented by: Methocarbamol (Methocarbamol 1,000 Mg/10 Ml Vial) 750 mg IV Q6HP PRN PRN Reason: Muscle Spasm Last Admin: 07/30/21 20:04 Dose: 750 mg Documented by: Metoprolol Succinate (Metoprolol Succinate 50 Mg Tab.Xl.24h) 100 mg PO QDAY [facility] Last Admin: 07/30/21 09:25 Dose: 100 mg Documented by: Morphine Sulfate (Morphine 4 Mg/Ml Vial) 0 mg IV Q3HP PRN PRN Reason: Pain Last Admin: 07/30/21 22:11 Dose: 2 mg Documented by: Morphine Sulfate (Morphine 4 Mg/Ml Vial) 0 mg IV Q1HP PRN; Protocol PRN Reason: Per Pain Protocol Naloxone HCl (Naloxone Hcl 0.4 Mg/Ml Vial) 0.1 mg IV Q2MIN PRN PRN Reason: Opiate Reversal Nitroglycerin (Nitroglycerin 0.4 Mg Tab.Subl) 0.4 mg SL Q5M PRN PRN Reason: Chest Pain Omeprazole (Omeprazole 20 Mg Capsule) 20 mg PO QAMAC [facility] Last Admin: 07/30/21 07:51 Dose: 20 mg Documented by: Ondansetron HCl (Ondansetron 4 Mg/2 Ml Vial) 4 mg IV Q4HP PRN PRN Reason: Nausea And Vomiting Oxybutynin Chloride (Oxybutynin Chloride 5 Mg Tab.Xl.24h) 5 mg PO QDAY [facility] Last Admin: 07/30/21 09:25 Dose: 5 mg Documented by: Polyethylene Glycol (Polyethylene Glycol 3350 17 Gm Packet) 17 gm PO DAILYP PRN PRN Reason: Constipation Potassium Chloride (Potassium Chloride 20 Meq Tablet) 40 meq PO UD PRN PRN Reason: Potssium is 3-3.5 Potassium Chloride (Potassium Chloride 20 Meq Tablet) 40 meq PO UD PRN PRN Reason: Potassium < 3 Prochlorperazine (Prochlorperazine 10 Mg/2 Ml Vial) 10 mg IV Q6HP PRN PRN Reason: Nausea And Vomiting Risperidone (Risperidone 0.25 Mg Tablet) 0.25 mg PO QHS [facility] Last Admin: 07/30/21 20:06 Dose: 0.25 mg Documented by: Senna (Sennosides 1 Tablet) 2 tab PO DAILYP PRN PRN Reason: Constipation Simvastatin (Simvastatin 20 Mg Tablet) 20 mg PO HS [facility] Last Admin: 07/30/21 20:05 Dose: 20 mg Documented by: Sodium Chloride (0.9 % Sodium Chloride 10 Ml Syringe) 10 ml IV Q8 [facility] Last Admin: 07/31/21 04:22 Dose: 10 ml Documented by: Sodium Chloride (Sodium Chloride 1 Gm Tablet) 1 gm PO TID [facility] Stop: 07/31/21 09:01 Last Admin: 07/30/21 20:05 Dose: 1 gm Documented by: Throat Lozenges (Benzocaine/Menthol 1 Lozenge) 1 lozenge PO PRN PRN PRN Reason: Sore Throat A/P Narrative A/P Narrative: A: *Right hip fracture: s/p ORIF (07/29) *HTN: *Hyponatremia: improved *COPD(3L O2 @home)/pulmonary fibrosis chronic hypoxic resp failure: *CKD III: *h/o CVA: On statin but do not see aspirin *HTN/HLD: *Obesity: BMI 33 *GERD: P: -Dr jones for ortho -home O2 and IH's -d/c home HCTZ for hyponatremia -Started ASA, continue statin -Continue home ARB/BB -PT/OT -ppx: lovenox postop per Ortho /home PPI full code Time Spent With Patient Time: Total time spent is greater than 50% in coordination of care (as documented) at patient's floor/unit and/or counseling patient: QUALITY VTE Deep Vein Thrombosis/Pulmonary Embolism Present on Admission: No
[2021-07-31] MEDS: ENOXAPARIN 30 MG/0.3 ML SYRINGE SQ SCH ×2 (08:17→20:05)
[2021-07-31] MEDS: DOCUSATE SODIUM 100 MG CAPSULE PO SCH ×2 (08:18→20:05)
[2021-07-31] MEDS: ASPIRIN 81 MG TAB.CHEW PO SCH ×2 (08:18)
[2021-07-31] MEDS: LOSARTAN 50 MG TABLET PO SCH (08:18)
[2021-07-31] MEDS: OXYBUTYNIN CHLORIDE 5 MG TAB.XL.24H PO SCH (08:18)
[2021-07-31] MEDS: METOPROLOL SUCCINATE 50 MG TAB.XL.24H PO SCH (08:18)
[2021-07-31] MEDS: SODIUM CHLORIDE 1 GM TABLET PO SCH (08:18)
[2021-07-31] MEDS: OMEPRAZOLE 20 MG CAPSULE PO SCH (08:18)
--- NOTE | 2021-07-31 14:32 | General Surgery Progress Note ---
Surgery - Auxiliary Note Subjective Patient Information: Note initiated : 07/31/21 at 2:29 pm Service Date, if different from initiated Date: [] Patient: Sunshine Palacios 85 y/o F admitted on 07/28/21 for fall right hip pain. Chief Complaint: Pt sleeping on exam. Spoke with son; explained the surgery, answered questions. Bandages c/d/i nvi-distal A/P: 2 days s/p R hip IM nail for intertroch fx-stable Mobilize with PT discharge to SNF when cleared by hospitalist. sign off ortho service. f/u 2 weeks at [facility] for re-check and staple removal.
[2021-07-31] MEDS: risperiDONE 0.25 MG TABLET PO SCH (20:05)
[2021-07-31] MEDS: SIMVASTATIN 20 MG TABLET PO SCH (20:05)
[2021-08-01] MEDS: HYDROcodone/APAP 5/325MG TABLET PO PRN ×3 (00:47→20:27)
[2021-08-01] MEDS: 0.9 % SODIUM CHLORIDE 10 ML SYRINGE IV SCH ×3 (05:49→22:00)
[2021-08-01] MEDS: ENOXAPARIN 30 MG/0.3 ML SYRINGE SQ SCH ×2 (08:29→20:28)
[2021-08-01] MEDS: METOPROLOL SUCCINATE 50 MG TAB.XL.24H PO SCH (08:29)
[2021-08-01] MEDS: LOSARTAN 50 MG TABLET PO SCH (08:29)
[2021-08-01] MEDS: DOCUSATE SODIUM 100 MG CAPSULE PO SCH ×2 (08:29→20:27)
[2021-08-01] MEDS: OMEPRAZOLE 20 MG CAPSULE PO SCH (08:29)
[2021-08-01] MEDS: OXYBUTYNIN CHLORIDE 5 MG TAB.XL.24H PO SCH (08:30)
[2021-08-01] MEDS: ASPIRIN 81 MG TAB.CHEW PO SCH (08:30)
[2021-08-01] MEDS ORDERED: 0.9 % SODIUM CHLORIDE 250 ML IV SCH (13:00)
--- NOTE | 2021-08-01 16:06 | Internal Med Progress Note ---
SUBJECTIVE Subjective Patient information: Note initiated : 08/01/21 at 4:03 pm Service Date, if different from initiated Date: [] Patient: Sunshine Palacios a 85 y/o F admitted on 07/28/21 for fall right hip pain. Chief Complaint: [] Interval history: History of present illness: Ms. Palacios is a 85 year old F Who was walking in her bedroom she tripped and fell. Immediate pain to the right hip. In the ED she has had nausea and vomiting but otherwise no complaints. No chest pain shortness of breath coughing. No headaches. Awaiting callback from orthopedic surgeon. In the ED patient hypertensive sodium mildly low but is on hydrochlorothiazide. Does have history of COPD and is on 3 L of oxygen at baseline. Does have history of pulmonary fibrosis 07/29 Patient appears comfortable. Awaiting for surgery. Sodium improved. 07/30 No overnight event or new complaints. Patient cantankerous at times. 07/31 No change. No overnight event or new complaints. Awaiting placement. 08/01 Hemoglobin trended down to 7, received 1 unit RBC. On 3 L/min nasal cannula oxygen. Discontinued Bruno catheter. Physical exam Head: Atraumatic, normal inspection. Eyes: normal appearance, no scleral icterus. Neck: full ROM Respiratory: no respiratory distress. Cardiovascular: normal rate and rhythm, S1, S2. GI/Abdominal: soft, nontender, no guarding. Extremities: Right lower extremity edema, tenderness at right hip. Neurological: CN II-XII intact, intact motor, intact sensation. Psychiatric: normal mood, impaired cognition. Skin: warm, normal color Constitutional Vitals: Vital Signs Temp Pulse Resp BP Pulse Ox 97.5 F 68 16 134/65 95 08/01/21 12:00 08/01/21 12:00 08/01/21 12:00 08/01/21 12:00 08/01/21 12:00 Period Temp Pulse Resp BP Sys/Guallpa Pulse Ox Last 24 Hr 96.9 F-98.1 F 66-70 15-20 107-144/49-65 94-100 Intake and Output 08/01/21 08/01/21 08/01/21 05:59 13:59 21:59 Intake Total 350 Output Total 350 Balance 0 Intake & Output: Intake & Output 08/01/21 08/01/21 08/01/21 05:59 13:59 21:59 Intake Total 350 Output Total 350 Balance 0 Intake: Oral 350 Output: Urine Catheter Amount 350 Other: Meal Lunch Percent of Meal Consumed 50% Feeding Ability Independent Urine Appearance Clear Uretheral (Bruno) Clear Cloudy Sediment Urine Color Dark Yellow Uretheral (Bruno) Light Carrie OBJ DATA Labs CBC & Chem 7: 08/01/21 12:10 07/31/21 05:27 Labs: Abnormal Lab Results 08/01/21 08/01/21 07/31/21 12:10 07:38 05:27 Hgb 7.0 L* 7.5 L Hct Sodium 132 L Chloride Glucose 126 H Calcium 8.0 L 07/30/21 07/30/21 05:52 05:52 Hgb 10.6 L Hct 32.7 L Sodium 129 L Chloride 94 L Glucose 159 H Calcium 8.2 L Meds: Medications Acetaminophen (Acetaminophen 325 Mg Tablet) 650 mg PO Q6HP PRN; Protocol PRN Reason: Per Pain Protocol/Fever > 101 Hydrocodone Bitart/Acetaminophen (Hydrocodone/Apap 5/325mg Tablet) 1 tab PO Q4HP PRN PRN Reason: PAIN LEVEL 3-6 Last Admin: 08/01/21 15:40 Dose: 1 tab Documented by: Albuterol/Ipratropium (Ipratropium/Albuterol 3 Ml Ampul.Neb) 3 ml NEB Q4HP PRN PRN Reason: Shortness Of Breath Aspirin (Aspirin 81 Mg Tab.Chew) 81 mg PO DAILY [facility] Last Admin: 08/01/21 08:30 Dose: 81 mg Documented by: Docusate Sodium (Docusate Sodium 100 Mg Capsule) 100 mg PO BID [facility] Last Admin: 08/01/21 08:29 Dose: 100 mg Documented by: Enoxaparin Sodium (Enoxaparin 30 Mg/0.3 Ml Syringe) 30 mg SQ BID [facility] Last Admin: 08/01/21 08:29 Dose: 30 mg Documented by: Hydralazine HCl (Hydralazine 20 Mg/Ml Vial) 0 mg IV Q2HP PRN PRN Reason: Hypertension Potassium Chloride 40 meq/ (Dextrose) 520 mls @ 130 mls/hr IV UD PRN PRN Reason: Potassium < 3 Magnesium Sulfate (Magnesium Sulfate) 2 gm in 50 mls @ 50 mls/hr IV UD PRN PRN Reason: Magnesium </= 1.6 Sodium Chloride (Sodium Chloride 0.9%) 250 mls @ 20 mls/hr IV .[id number] [facility] Stop: 08/02/21 01:29 Last Admin: 08/01/21 13:25 Dose: 20 mls/hr Documented by: Loperamide HCl (Loperamide 2 Mg Capsule) 2 mg PO Q4HP PRN PRN Reason: Diarrhea Losartan Potassium (Losartan 50 Mg Tablet) 100 mg PO QDAY [facility] Last Admin: 08/01/21 08:29 Dose: 100 mg Documented by: Methocarbamol (Methocarbamol 1,000 Mg/10 Ml Vial) 750 mg IV Q6HP PRN PRN Reason: Muscle Spasm Last Admin: 07/30/21 20:04 Dose: 750 mg Documented by: Metoprolol Succinate (Metoprolol Succinate 50 Mg Tab.Xl.24h) 100 mg PO QDAY [facility] Last Admin: 08/01/21 08:29 Dose: 100 mg Documented by: Morphine Sulfate (Morphine 4 Mg/Ml Vial) 0 mg IV Q3HP PRN PRN Reason: Pain Last Admin: 07/30/21 22:11 Dose: 2 mg Documented by: Morphine Sulfate (Morphine 4 Mg/Ml Vial) 0 mg IV Q1HP PRN; Protocol PRN Reason: Per Pain Protocol Naloxone HCl (Naloxone Hcl 0.4 Mg/Ml Vial) 0.1 mg IV Q2MIN PRN PRN Reason: Opiate Reversal Nitroglycerin (Nitroglycerin 0.4 Mg Tab.Subl) 0.4 mg SL Q5M PRN PRN Reason: Chest Pain Omeprazole ([facility] 20 Mg [facility]apsule) [facility] Last Admin: 08/01/21 08:29 Dose: 20 mg Documented by: Ondansetron HCl (Ondansetron 4 Mg/2 Ml Vial) 4 mg IV Q4HP PRN PRN Reason: Nausea And Vomiting Oxybutynin Chloride (Oxybutynin Chloride 5 Mg Tab.Xl.24h) 5 mg PO QDAY [facility] Last Admin: 08/01/21 08:30 Dose: 5 mg Documented by: Polyethylene Glycol (Polyethylene Glycol 3350 17 Gm Packet) 17 gm PO DAILYP PRN PRN Reason: Constipation Potassium Chloride (Potassium Chloride 20 Meq Tablet) 40 meq PO UD PRN PRN Reason: Potssium is 3-3.5 Potassium Chloride (Potassium Chloride 20 Meq Tablet) 40 meq PO UD PRN PRN Reason: Potassium < 3 Prochlorperazine (Prochlorperazine 10 Mg/2 Ml Vial) 10 mg IV Q6HP PRN PRN Reason: Nausea And Vomiting Risperidone (Risperidone 0.25 Mg Tablet) 0.25 mg PO QHS [facility] Last Admin: 07/31/21 20:05 Dose: 0.25 mg Documented by: Senna (Sennosides 1 Tablet) 2 tab PO DAILYP PRN PRN Reason: Constipation Simvastatin (Simvastatin 20 Mg Tablet) 20 mg PO HS [facility] Last Admin: 07/31/21 20:05 Dose: 20 mg Documented by: Sodium Chloride (0.9 % Sodium Chloride 10 Ml Syringe) 10 ml IV Q8 [facility] Last Admin: 08/01/21 13:25 Dose: 10 ml Documented by: Throat Lozenges (Benzocaine/Menthol 1 Lozenge) 1 lozenge PO PRN PRN PRN Reason: Sore Throat A/P Narrative A/P Narrative: A: *Right hip fracture: s/p ORIF (07/29) *Acute anemia likely due to surgical blood loss *HTN: *Hyponatremia: improved *COPD(3L O2 @home)/pulmonary fibrosis chronic hypoxic resp failure: *CKD III: *h/o CVA: On statin but do not see aspirin *HTN/HLD: *Obesity: BMI 33 *GERD: P: -Monitor hemoglobin, transfuse RBC as needed. -Dr jones for ortho -home O2 and IH's -Holding home HCTZ for hyponatremia -Continue home ASA and statin -Continue home ARB/BB -PT/OT -ppx: lovenox postop per Ortho /home PPI full code Time Spent With Patient Time: Total time spent is greater than 50% in coordination of care (as documented) at patient's floor/unit and/or counseling patient: QUALITY VTE Deep Vein Thrombosis/Pulmonary Embolism Present on Admission: No
[2021-08-01] MEDS: SIMVASTATIN 20 MG TABLET PO SCH (20:27)
[2021-08-01] MEDS: risperiDONE 0.25 MG TABLET PO SCH (20:28)
[2021-08-02] MEDS: HYDROcodone/APAP 5/325MG TABLET PO PRN ×3 (04:17→11:59)
[2021-08-02] MEDS: 0.9 % SODIUM CHLORIDE 10 ML SYRINGE IV SCH (04:18)
[2021-08-02] MEDS: OXYBUTYNIN CHLORIDE 5 MG TAB.XL.24H PO SCH (07:51)
[2021-08-02] MEDS: DOCUSATE SODIUM 100 MG CAPSULE PO SCH (07:51)
[2021-08-02] MEDS: ASPIRIN 81 MG TAB.CHEW PO SCH (07:51)
[2021-08-02] MEDS: OMEPRAZOLE 20 MG CAPSULE PO SCH (07:51)
[2021-08-02] MEDS: LOSARTAN 50 MG TABLET PO SCH (07:52)
[2021-08-02] MEDS: METOPROLOL SUCCINATE 50 MG TAB.XL.24H PO SCH (07:52)
[2021-08-02] MEDS: ENOXAPARIN 30 MG/0.3 ML SYRINGE SQ SCH (07:52)
[2021-08-02 08:33] LABS: Basophils # (Auto) 0.07 K/mcL (0.00-0.30); Basophils % (Auto) 0.5 % (0.0-2.0); Eosinophils # (Auto) 0.26 K/mcL (0.00-0.70); Eosinophils % (Auto) 1.9 % (0.0-7.0); Hematocrit 24.8 % (34.1-44.9); Hemoglobin 8.2 g/dL (11.2-15.7); Lymphocytes # (Auto) 1.69 K/mcL (1.50-4.80); Lymphocytes % (Auto) 12.1 % (15.5-49.0); Mean Cell Volume 87.3 fL (80.0-100.0); Mean Corpuscular HGB Conc 33.1 g/dL (31.0-36.0); Mean Platelet Volume 11.3 fL (7.4-10.4); Monocytes # (Auto) 1.71 K/mcL (0.10-0.90); Monocytes % (Auto) 12.2 % (1.0-12.0); Neutrophils % (Auto) 73.3 % (38.0-78.0); Platelet Count 298 K/mcL (140-440); RBC 2.84 M/mcL (3.59-5.38); Red Cell Distribution Width 13.2 % (11.5-14.5)
[2021-08-02 08:50] LABS: ALT/SGPT < 5 U/L (<40); AST/SGOT 15 U/L (<32); Albumin 2.9 gm/dL (3.2-5.2); Albumin/Globulin Ratio 1.3 (1.0-2.3); Alkaline Phosphatase 58 U/L (39-117); Blood Urea Nitrogen 17 mg/dL (8-23); Carbon Dioxide 26 mmol/L (22-30); Chloride 90 mmol/L (96-108); Globulin 2.2 gm/dL (2.2-3.7); Glomerular Filtration Rate 82; Glucose 130 mg/dL (70-105)
--- NOTE | 2021-08-02 10:41 | Discharge Summary ---
Discharge Provider Provider Patient information: Note initiated : 08/02/21 at 10:38 am Service Date, if different from initiated Date: [] Patient: Sunshine Palacios 85 y/o F admitted on 07/28/21 for fall right hip pain. Chief Complaint: [] Date of admission: 07/28/21 22:13 Discharge date: 08/02/21 Primary care physician: Binta Malloy Consults: 07/28/21 Consult to Physician [CONS] Stat Comment: Consulting Provider: Jason Celestin Reason For Exam: Physician to Consult Consult to Physician [CONS] Stat Comment: Consulting Provider: Zan Saleh Reason For Exam: Physician to Consult Discharge Meds Discharge Medications Home Medications aspirin 81 mg chewable tablet (Children's Aspirin) 81 mg PO BID #60 tab 07/29/21 [Rx Last Taken Unknown] Tylenol 500 mg PO TID 07/31/21 [History Confirmed 07/31/21 Last Taken 07/30/21 18:00] cetirizine 5 mg PO QHS 07/31/21 [History Confirmed 07/31/21 Last Taken 07/30/21 20:00] cetyl and stearate alcohol-propylen glycol-sls topical cream (Cetaphil) 1 applic TOPICAL QDAY 07/31/21 [History Confirmed 07/31/21 Last Taken 07/30/21 05:45] digoxin 125 mcg (0.125 mg) tablet (Digox) 125 mcg PO Q3D 07/31/21 [History Confirmed 07/31/21 Last Taken 07/28/21 07:00] furosemide 20 mg PO QAM 07/31/21 [History Confirmed 07/31/21 Last Taken 07/30/21 07:00] levothyroxine 125 mcg PO QAM 07/31/21 [History Confirmed 07/31/21 Last Taken 07/30/21 07:00] pantoprazole 40 mg tablet,delayed release 40 mg PO QDAY 07/31/21 [History Confirmed 07/31/21 Last Taken 07/30/21 07:00] polyethylene glycol 3350 17 gram/dose oral powder (Miralax) 17 g PO QAM 07/31/21 [History Confirmed 07/31/21 Last Taken 07/30/21 07:00] potassium gluconate 595 mg (99 mg) tablet 595 mg PO QDAY 07/31/21 [History Confirmed 07/31/21 Last Taken 07/30/21 07:00] acetaminophen 325 mg tablet (Tylenol) 650 mg PO Q6HP PRN #30 tab 08/02/21 [Rx Last Taken Unknown] hydrocodone 5 mg-acetaminophen 325 mg tablet 1 tab PO Q4HP PRN #7 tab 08/02/21 [Rx Last Taken Unknown] loperamide 2 mg capsule 2 mg PO Q4HP PRN #30 cap 08/02/21 [Rx Last Taken Unknown] losartan 50 mg tablet 100 mg PO QDAY #60 tab 08/02/21 [Rx Last Taken Unknown] metoprolol succinate 50 mg tablet,extended release 24 hr 100 mg PO QDAY #60 tab 08/02/21 [Rx Last Taken Unknown] nitroglycerin 0.4 mg sublingual tablet 0.4 mg SUBLINGUAL Q5M PRN #60 tab 08/02/21 [Rx Last Taken Unknown] oxybutynin chloride 5 mg tablet,extended release 24 hr 5 mg PO QDAY #30 tab 08/02/21 [Rx Last Taken Unknown] polyethylene glycol 3350 17 gram oral powder packet (HealthyLax) 17 g PO DAILYP PRN #30 ea 08/02/21 [Rx Last Taken Unknown] risperidone 0.25 mg tablet 0.25 mg PO QHS #30 tab 08/02/21 [Rx Last Taken Unknown] COURSE Hospital Course Hospital course: Ms. Palacios is a 85 year old F Who was walking in her bedroom she tripped and fell. Immediate pain to the right hip. In the ED she has had nausea and vomiting but otherwise no complaints. No chest pain shortness of breath coughing. No headaches. Awaiting callback from orthopedic surgeon. In the ED patient hypertensive sodium mildly low but is on hydrochlorothiazide. Does have history of COPD and is on 3 L of oxygen at baseline. Does have history of pulmonary fibrosis 3 Patient appears comfortable. Awaiting for surgery. Sodium improved. 07/30 No overnight event or new complaints. Patient cantankerous at times. 07/31 No change. No overnight event or new complaints. Awaiting placement. 08/01 Hemoglobin trended down to 7, received 1 unit RBC. On 3 L/min nasal cannula oxygen. Discontinued Bruno catheter. 08/02 No concerning events overnight, hemoglobin 8.2. Discharged to SNF, Aspirin 81 mg BID for DVT prophylaxis per orthopedic surgery. Recommend follow up hemoglobin at SNF. Follow up with PCP after SNF. Physical exam Head: Atraumatic, normal inspection. Eyes: normal appearance, no scleral icterus. Neck: full ROM Respiratory: no respiratory distress. Cardiovascular: normal rate and rhythm, S1, S2. GI/Abdominal: soft, nontender, no guarding. Extremities: Right lower extremity edema, tenderness at right hip. Neurological: CN II-XII intact, intact motor, intact sensation. Psychiatric: normal mood, impaired cognition. Skin: warm, normal color Discharge diagnosis: Right hip fracture Time Spent with Patient Time attestation: Total time spent providing and/or coordinating discharge services: EXAM Constitutional Vitals: Temp Pulse Resp BP Pulse Ox 96.3 F L 73 12 109/64 98 08/02/21 07:44 08/02/21 07:44 08/02/21 07:44 08/02/21 07:44 08/02/21 07:44 Discharge Data Data Completed and Pending Labs on day of discharge: Labs from last 24 hours 08/02/21 08/02/21 08/01/21 07:47 07:39 12:10 WBC 14.0 H RBC 2.84 L Hgb 8.2 L 7.0 L* Hct 24.8 L MCV 87.3 MCH 28.9 MCHC 33.1 RDW 13.2 Plt Count 298 MPV 11.3 H Neut % (Auto) 73.3 Lymph % (Auto) 12.1 L [place] % (Auto) 12.2 H Eos % (Auto) 1.9 Baso % (Auto) 0.5 Lymph # (Auto) 1.69 [place] # (Auto) 1.71 H Eos # (Auto) 0.26 Baso # (Auto) 0.07 Absolute Neutrophils 10.29 H Sodium 125 L Potassium 4.3 Chloride 90 L Carbon Dioxide 26 Anion Gap 9.0 BUN 17 Creatinine 0.6 GFR Calculation 82 Glucose 130 H Calcium 8.0 L Total Bilirubin 1.0 AST 15 ALT < 5 Alkaline Phosphatase 58 Total Protein 5.1 L Albumin 2.9 L Globulin 2.2 Albumin/Globulin Ratio 1.3 Discharge Plan Patient/Caregiver Discharge Instructions Activity: as per physical therapy and other Diet: Regular Diet Activity Restrictions/Additional Instructions: 50% WB Prescriptions: New aspirin [Children's Aspirin] 81 mg tablet,chewable 81 mg PO BID Qty: 60 0RF losartan 50 mg Tablet 100 mg PO QDAY Qty: 60 0RF metoprolol succinate 50 mg Tablet Extended Release 24 Hr 100 mg PO QDAY Qty: 60 0RF nitroglycerin 0.4 mg Tablet, Sublingual 0.4 mg sublingual Q5M PRN (Reason: Chest Pain) Qty: 60 0RF oxybutynin chloride 5 mg Tablet Extended Release 24 Hr 5 mg PO QDAY Qty: 30 0RF loperamide 2 mg Capsule 2 mg PO Q4HP PRN (Reason: Diarrhea) Qty: 30 0RF hydrocodone-acetaminophen 5-325 mg Tablet 1 tab PO Q4HP PRN (Reason: Pain Level 3-6) Qty: 7 0RF polyethylene glycol 3350 [HealthyLax] 17 gram Powder In Packet 17 g PO DAILYP PRN (Reason: Constipation) Qty: 30 0RF acetaminophen [Tylenol] 325 mg Tablet 650 mg PO Q6HP PRN (Reason: Per Pain Protocol/Fever > 101) Qty: 30 0RF risperidone 0.25 mg Tablet 0.25 mg PO QHS Qty: 30 0RF Continued cetirizine 5 mg tablet 5 mg PO QHS 0RF digoxin [Digox] 125 mcg (0.125 mg) Tablet 125 mcg PO Q3D 0RF furosemide 20 mg tablet 20 mg PO QAM 0RF levothyroxine 125 mcg tablet 125 mcg PO QAM 0RF polyethylene glycol 3350 [Miralax] 17 gram/dose Powder 17 g PO QAM 0RF pantoprazole 40 mg Tablet,Delayed Release (Dr/Ec) 40 mg PO QDAY 0RF potassium gluconate 595 mg (99 mg) Tablet 595 mg PO QDAY 0RF Tylenol 500 mg tablet 500 mg PO TID 0RF Cetaphil Cream 1 applic TOPICAL QDAY 0RF Discontinued doxycycline monohydrate 100 mg Tablet 100 mg PO BID 0RF Rx Instructions: One tablet PO BID for infection 7 days. Start date 07/29/21 1800 Follow Up Plan Follow up with: Zan Saleh MD [Physician] - Binta Malloy MD [Primary Care Provider] - Patient Disposition: Xfer SNF Prognosis: Fair Rehab Potential: Fair I certify that the patient requires SNF services: Yes Overall status at discharge: patient is progressing back to baseline Discharge Orders: Discharge Order (Routine); Ordered 08/01/21 Ordered By: [facility] Deep Vein Thrombosis/Pulmonary Embolism Present on Admission: No
[2021-08-02] MEDS ORDERED: FLU VACC QS2021-22(6MOS UP)/PF 60 MCG/0.5 ML SYRINGE IM ONE (12:15)
== END 2021-08-02 12:30 | DRG 481 ==
LOC: ED 18:25 → MEDSUR 22:13
PROVIDERS: ADMIT Internal Medicine; ATTEND Internal Medicine